=== PATIENT | male | born 1965 ===

== ENCOUNTER 2023-02-25 07:53 | Outpatient (CLI) | payer OTHER | END 2023-02-25 08:04 | disposition home or self-care (01) | LOC: RAD 07:53 | PROVIDERS: ATTEND General Practice | DX: J98.4 Other disorders of lung (principal); Z13.228 Encounter for screening for other metabolic disorders; Z13.828 Encounter for screening for other musculoskeletal disorder ==

== ENCOUNTER 2025-01-13 07:41 | Outpatient (CLI) | payer OTHER | END 2025-01-13 07:42 | disposition home or self-care (01) | LOC: RAD 07:41 | PROVIDERS: ATTEND General Practice | DX: M54.50 Low back pain, unspecified (principal) ==